=== PATIENT | female | born 1985 | race Caucasian/White ===

== ENCOUNTER 2017-02-13 19:19 | Emergency (ER) | payer OTHER, MEDICAID ==
[~2017-02-13] VITALS: Ht 170.2 cm; Wt 121.0 kg
[~2017-02-13 19:19] MED LIST: NAPR-576 PO
[2017-02-13 19:21] VITALS: BP 162/74; PULSE 103; RESP 20; TEMP 97.7; O2SAT 99
[2017-02-13] MEDS ORDERED: BACL10TA PO ×2 (21:21)
[2017-02-13] MEDS ORDERED: LIDO1PAD52 TOPICAL ×2 (21:21)
[2017-02-13] MEDS ORDERED: IBUP800T23 PO ×2 (21:21)
--- NOTE | 2017-02-13 21:28 | PD ---
HPI Chief Complaint: Back/ Neck Pain or Injury Time Seen by Provider: 21:10 Travel History International Travel<30 days: No Contact w/Intl Traveler<30days: No Traveled to known affect area: No History of Present Illness HPI 32-year-old female presents for evaluation of lower back pain. 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 She reports that she tripped on the lip of a sliding glass door and twisted her back. She was able to catch herself on the door and she did not fall to ground. Since then she has had progressively worsening lower back pain. The pain is an achy pain which she reports feels like a muscle strain. She has had muscle strains in the past and this feels similar. She denies any radicular symptoms, saddle anesthesia, bowel or bladder incontinence , abdominal pain, weakness. She has no other complaints at this time. [facility] Past Medical History Immunizations Current: Yes Tetanus Vaccination: Unknown Influenza Vaccination: Yes ?: Unknown Social History Alcohol Use: No Tobacco Use: No Substance Use: No Allergies-Medications (Allergen,Severity, Reaction): Coded Allergies: aspirin (Unverified Allergy, Severe, 02/13/17) ketorolac (Unverified Allergy, Severe, 02/13/17) tramadol (Unverified Allergy, Severe, 02/13/17) codeine (Unverified Allergy, Mild, ITCH, 02/13/17) pineapple (Unverified Allergy, Mild, ITCH, 02/13/17) Reported Meds & Prescriptions Reported Meds & Active Scripts Active Lidocaine Patch 12 HR (Lidocaine) 5 % Patch 1 Patch TOPICAL DAILY PRN Remove patch after 12 hours Baclofen 10 Mg Tab 10 Mg PO TID 10 Days Ibuprofen 800 Mg Tab 800 Mg PO Q6HR PRN Review of Systems Except as stated in HPI: all other systems reviewed are Neg Physical Exam Narrative GENERAL: Well-developed well-nourished female in no acute distress. SKIN: Warm and dry. HEAD: Atraumatic. Normocephalic. EYES: Pupils equal and round. No scleral icterus. No injection or drainage. ENT: No nasal bleeding or discharge. Mucous membranes pink and moist. NECK: Trachea midline. No JVD. CARDIOVASCULAR: Regular rate and rhythm. No murmur appreciated. RESPIRATORY: No accessory muscle use. Clear to auscultation. Breath sounds equal bilaterally. GASTROINTESTINAL: Abdomen soft, non-tender, nondistended. Hepatic and splenic margins not palpable. MUSCULOSKELETAL: No obvious deformities. Some tenderness to palpation to the lumbar paravertebral musculature. The patient is able to flex and extend her back with reason we'll range of motion. She has 5 out of 5 muscle strength in lower extremities bilaterally. There is no CVA tenderness. NEUROLOGICAL: Awake and alert. No obvious cranial nerve deficits. Motor grossly within normal limits. Normal speech. PSYCHIATRIC: Appropriate mood and affect; insight and judgment normal. Data Data Last Documented VS Vital Signs Date Time Temp Pulse Resp B/P (MAP) Pulse Ox O2 Delivery O2 Flow Rate FiO2 02/13/17 19:21 97.7 103 20 162/74 (103) 99 Room Air [facility] Medical Decision Making Medical Screen Exam Complete: Yes Emergency Medical Condition: Yes Medical Record Reviewed: Yes Differential Diagnosis Lumbar strain, spasm, fracture, spondylolisthesis, spinal stenosis, herniated nucleus pulposus Narrative Course Her history and examination are consistent with lumbar strain. The plan will be to treat the patient symptomatically. She has listed allergies to aspirin and Toradol however she takes ibuprofen regularly with no adverse side effects. The patient will be given a dose of ibuprofen here and discharged with prescriptions for baclofen, ibuprofen and Lidoderm patches. Diagnosis Primary Impression: Lumbar strain Qualified Codes: S39.012A - Strain of muscle, fascia and tendon of lower back , initial encounter Additional Instructions: Medication as needed. Take ibuprofen with meals. Do not drive or drink alcohol when taking baclofen as an May cause sedation. Avoid strenuous activity or heavy lifting. Continue to perform normal activities of daily living within her pain tolerance. Follow-up with primary care physician in 2 weeks for recheck. Return for any emergent medical conditions. Med/Other Pt SpecificInfo: Prescription(s) given Scripts Lidocaine Patch 12 HR (Lidocaine Patch 12 HR) 5 % Patch 1 PATCH TOPICAL DAILY Y for PAIN, #1 BOX 1 Refill Remove patch after 12 hours Prov: Anjelica Yi MD 02/13/17 Baclofen (Baclofen) 10 Mg Tab 10 MG PO TID for Muscle Spasm for 10 Days, TAB 0 Refills Prov: Anjelica Yi MD 02/13/17 Ibuprofen (Ibuprofen) 800 Mg Tab 800 MG PO Q6HR Y for PAIN, #40 TAB 0 Refills Prov: Anjelica Yi MD 02/13/17 Disposition: 01 DISCHARGE HOME Condition: Stable Mark Esquivel Feb 13, 2017 21:28
== END 2017-02-13 21:43 | disposition home or self-care (01) ==
LOC: NEPC 19:19
DX: S39.012A Strain of muscle, fascia and tendon of lower back, initial encounter (principal); W22.8XXA Striking against or struck by other objects, initial encounter; Y92.89 Other specified places as the place of occurrence of the external cause; Y99.0 Civilian activity done for income or pay
CPT/HCPCS: 99283